=== PATIENT | female | born 1980 | race Caucasian/White ===

== ENCOUNTER 2024-01-02 06:12 | Emergency (ER) | payer OTHER ==
[~2024-01-02] VITALS: Ht 152.4 cm; Wt 59.0 kg
[2024-01-02 06:22] VITALS: BP_SYST 120; PULSE 88; RESP 20; TEMP 99.3; O2SAT 0; O2SAT 99
[2024-01-02 07:13] LABS: BILIRUBIN,URINE NEGATIVE (NEGATIVE); BLOOD, URINE 1+ (NEGATIVE); CLARITY/URINE CLEAR (CLEAR); COLOR,URINE YELLOW (YELLOW); GLUCOSE,URINE TRACE (NEGATIVE); KETONES,URINE NEGATIVE (NEGATIVE); LEUKOCYTE ESTERASE ,URINE TRACE (NEGATIVE); NITRITE, URINE POSITIVE (NEGATIVE); PROTEIN URINE NEGATIVE (NEGATIVE)
[2024-01-02 07:22] LABS: BACTERIA,URINE MODERATE /HPF (None Seen); MUCUS,URINE 1+ /LPF (None Seen)
[2024-01-02] MEDS ORDERED: IBUP-1969 PO (07:33)
[2024-01-02] MEDS ORDERED: NITR-85 PO (07:33)
[2024-01-02] MEDS ORDERED: BROM118S61 PO (07:34)
[2024-01-02 07:35] LABS: INFLUENZA TYPE A Negative (NEGATIVE); INFLUENZA TYPE B NEGATIVE (NEGATIVE)
[2024-01-02] MEDS: KETOROLAC TROMETHAMINE 60 MG/2 ML VIAL IM ONE (07:55)
[2024-01-02 07:57] LABS: COVID19 ANTIGEN SOFIA FIA NEGATIVE (NEGATIVE)
[2024-01-02 08:20] VITALS: BP_SYST 120; PULSE 88; RESP 20; TEMP 99.3; O2SAT 99
== END 2024-01-02 08:12 | disposition home or self-care (01) ==
LOC: SED 06:12
DX: N39.0 Urinary tract infection, site not specified (principal); J06.9 Acute upper respiratory infection, unspecified; R05.9 Cough, unspecified; M79.10 Myalgia, unspecified site; Z79.899 Other long term (current) drug therapy; Z20.822 Contact with and (suspected) exposure to COVID-19
CPT/HCPCS: 99283; 87426; 81001; 87086; 36415; 81025; 96372; 87804 ×2; 81000; 81015; J1885